=== PATIENT | female | born 1990 | race Two or more races ===

== ENCOUNTER 2017-06-26 07:27 | Emergency (ER) | payer MEDICAID ==
[~2017-06-26] VITALS: Ht 154.9 cm; Wt 51.7 kg
[2017-06-26 07:37] VITALS: BP 119/63
[2017-06-26 08:49] LABS: Basophils # (auto) 0 uL; Basophils % (auto) 0.4 % (0.0-2.0); Eosinophils # (auto) 0.4 uL; Eosinophils % (auto) 5.5 % (0.0-7.0); Hemoglobin 11.4 g/dL (12.2-16.2); Lymphocytes # (auto) 2.3 uL; Lymphocytes % (auto) 29.6 % (10.0-50.0); Mean Corpuscular Hemoglobin 31.4 pg (28.0-32.0); Mean Corpuscular Hgb Conc. 33.6 g/dL (32.0-36.0); Mean Corpuscular Volume 93.6 fL (80.0-100.0); Monocytes # (auto) 0.5 uL; Monocytes % (auto) 6.5 % (0.0-12.0); Neutrophils # (auto) 4.6 uL; Platelet Count (auto) 234 10^3/uL (140-450); Red Blood Cells 3.63 10^6/uL (4.0-5.20); White Blood Cell 7.9 10^3/uL (4.4-10.8)
[2017-06-26] MEDS ORDERED: IBUPROFEN 600 MG TAB PO ONE (09:00)
[2017-06-26 09:06] LABS: Albumin 3.8 g/dL (3.4-5.0); BUN/Creatinine Ratio 12.5; Bilirubin, Total 0.4 mg/dL (0.2-1.0); Calcium 8.3 mg/dL (8.5-10.1); Potassium 4.1 mmol/L (3.5-5.1)
== END 2017-06-26 09:34 | disposition left against medical advice (07) ==
LOC: ER 07:27
DX: S86.912A Strain of unspecified muscle(s) and tendon(s) at lower leg level, left leg, initial encounter (principal); X58.XXXA Exposure to other specified factors, initial encounter; Y93.89 Activity, other specified; Y92.89 Other specified places as the place of occurrence of the external cause; Y99.8 Other external cause status
CPT/HCPCS: 36415; 80053; 85025

== ENCOUNTER 2023-01-26 20:31 | Emergency (ER) | payer MEDICAID ==
[~2023-01-26] VITALS: Ht 152.4 cm; Wt 54.5 kg
[2023-01-26] MEDS ORDERED: PRED10TA PO (22:34)
[2023-01-27] VITALS: BP 105/68; PULSE 76; RESP 18; TEMP 98.3; O2SAT 95
== END 2023-01-27 00:01 | disposition home or self-care (01) ==
LOC: ER 20:31
DX: G58.8 Other specified mononeuropathies (principal); Z79.899 Other long term (current) drug therapy
CPT/HCPCS: 93971

== ENCOUNTER 2024-03-30 22:31 | Emergency (ER) | payer MEDICAID ==
[~2024-03-30] VITALS: Ht 152.4 cm; Wt 58.3 kg
[~2024-03-30 22:31] MED LIST: PRED10TA PO
[2024-03-30] MEDS ORDERED: LIDO2SOL26 MT (22:46)
--- NOTE | 2024-03-30 22:47 | ED.PDOC ---
History of Present Illness HPI Comments right tooth ache Comments pt has a cavity in the right lower jaw for a week, has had pain. was prescribed hydrocodone and amoxil, but pain is not controlled. she was prescribed the medications yesterday at [facility]. 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 History Family History Family History: No family hx of HTN, Family hx of DM Social History Smoker: Non-Smoker Alcohol: Denies ETOH Use Drugs: Marijuana Lives In: Home Constitutional: denies: chills, diaphoresis, fatigue, fever, malaise, sweats, weakness, others EENTM: reports: mouth pain; denies: blurred vision, double vision, ear bleeding, ear discharge, ear drainage, ear pain, ear ringing, eye pain, eye redness, hearing loss, mouth swelling, nasal discharge, nose bleeding, nose congestion, nose pain, photophobia, tearing, throat pain, throat swelling, voice changes Respiratory: denies: cough, hemoptysis, orthopnea, SOB at rest, shortness of breath, SOB with excertion, stridor, wheezing, others Cardiovascular: denies: chest pain, dizzy spells, diaphoresis, Dyspnea on exertion, edema, irregular heart beat, left arm pain, lightheadedness, palpitations, PND, syncope, others Gastrointestinal: denies: abdomen distended, abdominal pain, blood streaked bowels, constipated, diarrhea, dysphagia, difficulty swallowing, hematemesis, melena, nausea, poor appetite, poor fluid intake, rectal bleeding, rectal pain, vomiting, others Genitourinary: denies: abnormal vagina bleeding, burning, dyspareunia, dysuria, flank pain, frequency, hematuria, incontinence, pain, , vagina discha rge, urgency, others Neurological: denies: dizziness, fainting, headache, left sided numbness, left sided weakness, numbness, paresthesia, pre-existing deficit, right sided numbness, right sided weakness, seizure, speech problems, tingling, tremors, weakness, others Musculoskeletal: denies: back pain, gout, joint pain, joint swelling, muscle pain, muscle stiffness, neck pain, others Integumetry: denies: bruises, change in color, change in hair/nails, dryness, laceration, lesions, lumps, rash, wounds, others Allergic/Immunocompromised: denies: Difficulty Healing, Frequent Infections, Hives, Itching, others Hematologic/Lymphatic: denies: anemia, blood clots, easy bleeding, easy bruising, swollen glands, others Endocrine: denies: excessive hunger, excessive sweating, excessive thirst, excessive urination, flushing, intolerance to cold, intolerance to heat, unexplained weight gain, unexplained weight loss, others Psychiatric: denies: anxiety, bipolar disorder, depression, hopeless, panic disorder, schizophrenia, sleepless, suicidal, others All Other Systems: Reviewed and Negative Physical Exam General Appearance: No Apparent Distress, Normal HEENT: Normal ENT Inspection, Pharynx Normal, TMs Normal, Other (right low molarwith caries. no swelling. no absces, no facial swelling, no trismus) Neck: Full Range of Motion, Non-Tender, Normal, Normal Inspection Respiratory: Chest Non-Tender, Lungs Clear, No Accessory Muscle Use, No Respiratory Distress, Normal Breath Sounds Cardiovascular: No Edema, No JVD, No Murmur, No Gallop, Normal Peripheral Pulses, Regular Rate/Rhythm Breast Exam: Deferred Gastrointestinal: No Organomegaly, Non Tender, No Pulsatile Mass, Normal Bowel Sounds, Soft Genitalia: Deferred Pelvic: Deferred Rectal: Deferred Extremities: No calf tenderness, Normal capillary refill, Normal inspection, Normal range of motion, Non-tender, No pedal edema Musculoskeletal : Apperance: Normal Neurologic: Alert, 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 Was a procedure done?: No Differential Dx Considerations may include: dental caries, dental abscess, facial abscess, facial cellulitis, Robert angina, Time of 1ST Reevaluation: 22:42 Reevaluation 1ST: Unchanged Patient Education/Counseling: Diagnosis, Treatment, Prognosis, Need For Follow Up Family Education/Counseling: Diagnosis, Treatment, Prognosis, Need For Follow Up Additional Information pt has a dental caries, without abscess or facial cellulitis. i will give her a dose of toradol and prescribe viscus lidocaine Departure 1 Departure Time of Disposition: 22:43 Impression: Primary Impression: Dental caries Disposition: HOME / SELF CARE / HOMELESS Condition: Good e-Prescriptions Lidocaine HCl (Mouth-Throat) (Lidocaine HCl Viscous) 2 % Cristel 5 ML MT q4 PRN for 3 Days, #100 ML Prov: CHANCE MATOS MD 03/30/24 Discharged With: Self, Relative Critical Care Note Critical Care Time?: No Stability Stability form required: No CHANCE MATOS MD Mar 30, 2024 22:47
[2024-03-31] MEDS: KETOROLAC TROMETH 30 MG/ML 1ML VIAL IM ONE (01:14)
[2024-03-31 01:15] VITALS: BP 113/76; PULSE 87; RESP 18; TEMP 98.3; O2SAT 98
== END 2024-03-31 01:15 | disposition home or self-care (01) ==
LOC: ER 22:31
DX: K02.9 Dental caries, unspecified (principal)
CPT/HCPCS: 96372; 99283; J1885